=== PATIENT | male | born 1945 | race Caucasian/White ===

== ENCOUNTER → 2018-06-25 10:31 | Outpatient (BNVA) | payer MEDICARE, BC, SELFPAY | PROVIDERS: Visit Provider Student in an Organized Health Care Education/Training Program | DX: M17.12 Unilateral primary osteoarthritis, left knee (principal) | CPT/HCPCS: 20610; 99214; J1040 ==

== ENCOUNTER → 2018-07-23 08:43 | Outpatient (BNVA) | payer MEDICARE, BC, SELFPAY | PROVIDERS: Visit Provider Student in an Organized Health Care Education/Training Program | DX: M25.511 Pain in right shoulder (principal); S49.91XA Unspecified injury of right shoulder and upper arm, initial encounter; X50.0XXA Overexertion from strenuous movement or load, initial encounter | CPT/HCPCS: 99213; 99214 ==

== ENCOUNTER 2019-03-30 20:32 | Emergency (ER) | payer MEDICARE, BC, SELFPAY ==
[2019-03-30] VITALS (17 sets, daily range): BP systolic 114–126; BP diastolic 54–67; PULSE 94–112; RESP 13–23; TEMP 37.4–38.8; O2SAT 94–97
--- NOTE | 2019-03-30 20:44 | DI.RAD_ITS ---
SYMPTOM/DIAGNOSIS: FEVER CHEST X-RAY: Frontal and lateral views. Comparison is 07/01/15 Heart size and pulmonary vasculature are within normal limits. No definite focal consolidating infiltrates are seen. No effusions or pneumothoraces are identified. Stable degenerative changes are seen in the spine. IMPRESSION: No definite acute pulmonary process.
--- NOTE | 2019-03-30 20:45 | ED.GENADUL_ITS ---
Discharge Plan Disposition Patient Disposition: HOME Condition: Improving Discharge Details Chief Complaint: Fever Clinical Impression: Pneumonia involving right lung Primary Care Provider: Davida,Local ED Provider: Cachorro Calvert Home Meds and New Rx's Prescriptions: New cefpodoxime 200 mg tablet 200 mg PO BID Qty: 20 RF: 0 Continued atorvastatin 10 mg tablet 10 mg PO .QOD RF: 0 docusate sodium [Stool Softener] 100 mg Capsule 100 mg PO BID RF: 0 aspirin 81 mg Tablet,Chewable 81 mg PO DAILY RF: 0 losartan-hydrochlorothiazide 100-12.5 mg Tablet 1 tab PO DAILY RF: 0 Discharge Instructions Instructions: Pneumonia (ED) Additional Instructions: Home to rest today. May use Aleve or Tylenol as needed for aches, pains, fever. Please take antibiotics as prescribed, next dose tomorrow. Return for any acute concern. Follow-up with Dr. Barrera for recheck if not improving in 3 days time. Medical Decision Making 73-year-old male presents from home with the abrupt onset this afternoon of chills and a shaking rigor after working outside. He questioned a fever at home and arrived with a temperature 38.8. Pulse slightly elevated 112. Blood pressure normal 126/67. No clear source for fever, therefore broad fever work- up including chest x-ray, urinalysis, blood cultures obtained including lactic acid. Patient given fluid bolus and acetaminophen. Labs reveal slight neutrophil predominance. White count is 10. Discrete anion gap of 11. Chest x-ray reveals developing right base infiltrate. Patient given a gram of Rocephin. Following medication and fluids, patient defervesced, his pulse corrected to approximately 85-90. He subjectively felt improved. I will place him on a course of Cefpodoxime. He understands homecare as well as follow-up/return precautions. He is stable and improved at this time Lab Data Lab results reviewed: Yes I reviewed the patient's lab results. Laboratory Results - last 24 hr 03/30/19 03/30/19 03/30/19 20:45 20:45 20:45 WBC 10.28 RBC 4.06 L Hgb 12.9 L Hct 37.8 L MCV 93.1 MCH 31.8 MCHC 34.1 RDW 13.0 Plt Count 160 MPV 9.4 Immature Gran % 0.3 Neutrophils % 92.8 Lymphocytes % 4.7 Monocytes % 2.1 Eosinophils % 0.0 Basophils % 0.1 Absolute Neutrophils 9.54 H Absolute Lymphocytes 0.48 L Absolute Monocytes 0.22 Absolute Eosinophils 0.00 Absolute Basophils 0.01 Sodium 139 Potassium 3.4 L Chloride 105 Carbon Dioxide 22.5 Anion Gap 11.5 H BUN 27 H Creatinine 1.10 Estimated GFR/1.73 m2 >= 60.00 Glucose 131 H Lactate 1.5 H Calcium 8.0 L Magnesium 1.9 Total Bilirubin 0.7 AST 15 ALT 25 Alkaline Phosphatase 75 Total Protein 6.7 Albumin 3.1 L Urine Color Urine Clarity Urine pH Ur Specific [place] Urine Protein Urine Ketones Urine Blood Urine Nitrite Urine Bilirubin Urine Urobilinogen Ur Leukocyte Esterase Urine Glucose 03/30/19 21:05 WBC RBC Hgb Hct MCV MCH MCHC RDW Plt Count MPV Immature Gran % Neutrophils % Lymphocytes % Monocytes % Eosinophils % Basophils % Absolute Neutrophils Absolute Lymphocytes Absolute Monocytes Absolute Eosinophils Absolute Basophils Sodium Potassium Chloride Carbon Dioxide Anion Gap BUN Creatinine Estimated GFR/1.73 m2 Glucose Lactate Calcium Magnesium Total Bilirubin AST ALT Alkaline Phosphatase Total Protein Albumin Urine Color Yellow Urine Clarity Clear Urine pH 5.5 Ur Specific [place] 1.025 Urine Protein 30 H Urine Ketones Negative Urine Blood Negative Urine Nitrite Negative Urine Bilirubin Negative Urine Urobilinogen 0.2 Ur Leukocyte Esterase Negative Urine Glucose Negative ECG Data Attestation: I personally reviewed and interpreted this ECG (s) as follows: Interpretation: Normal sinus tachycardia with a rate of 110, the QRS is narrow, there is no ST segment elevation present HPI General Mode of arrival: EMS . Date/Time Provider Initiated Documentation: 03/30/19 20:49 . Limitations to Documentation: no limitations . Information obtained by: family and EMS . History of Present Illness 73 year old M presents to the emergency department with the chief complaint of Chills and fever, described as moderate, Quality is described as constant, Patient reports no radiation. Patient started experiencing this hour(s) and it has been constant. No relieving factors improve symptom(s), No exacerbating factors reported . Patient notes other (Loose stool). Patient did receive the following treatments prior to arrival, none Related Data Home Medications Medication Instructions Recorded Confirmed atorvastatin 10 mg tablet 10 mg PO .QOD tab 06/25/18 03/30/19 aspirin 81 mg PO DAILY 03/30/19 03/30/19 cefpodoxime 200 mg PO BID #20 tab 03/30/19 docusate sodium [Stool Softener] 100 mg PO BID 03/30/19 03/30/19 losartan-hydrochlorothiazide 1 tab PO DAILY 03/30/19 03/30/19 Previous Rx's Medication Instructions Recorded cefpodoxime 200 mg PO BID #20 tab 03/30/19 Allergies Allergy/AdvReac Type Severity Reaction Status Date / Time sulfamethoxazole Allergy Severe Skin Rash Unverified 03/30/19 20:39 [From Bactrim] trimethoprim [From Bactrim] Allergy Severe Skin Rash Unverified 03/30/19 20:39 Sulfa (Sulfonamide Allergy Intermediate Skin Rash Unverified 03/30/19 20:39 Antibiotics) General Stated Complaint: Fever BLANCA: 3 Review of Systems Review of Systems 8 systems reviewed and otherwise negative [facility] Social History Smoking/Tobacco Use Status: Never Drug use: Never Do you feel safe at home: Yes Do you feel safe in your relationship?: Yes Exam Narrative Exam Narrative: GEN: awake, alert, oriented 3. Pleasant, well groomed, interactive. HEAD: Normocephalic, atraumatic ENT: Mucous membranes moist, oropharynx unremarkable, External ear exam unremarkable EYES: PERRL, EOMI NECK: Full ROM, no DARRIUS, no menigismus CHEST/RESP: Nontender, clear to auscultation bilateral, no wheeze/rhonchi/rales CARDIOVASCULAR: Tachycardic with subtle 2 out of 6 systolic ejection murmur. 2+ Rad pulse bilateral ABDOMEN: Soft, nontender, no mass. +Bowel sounds EXT: Full ROM, no edema, no rash Neuro: Grossly normal neurologic exam, conversant, interactive. Psych: Speech fluent, thoughts congruent, affect normal Course Vital Signs Temperature 38.8 C H 03/30/19 20:32 Pulse 112 H 03/30/19 20:32 Respiratory Rate 18 03/30/19 20:32 Blood Pressure 126/67 03/30/19 20:32 Pulse Oximetry 96 03/30/19 20:32 Temperature 38.8 C H 03/30/19 20:32 Temperature Source Oral 03/30/19 20:32 Pulse 112 H 03/30/19 20:32 Respiratory Rate 18 03/30/19 20:32 Respiratory Effort Non-Labored 03/30/19 20:38 Blood Pressure 126/67 03/30/19 20:32 Blood Pressure Position Supine 03/30/19 20:32 Pulse Oximetry 96 03/30/19 20:32 Oxygen Delivery Method Room Air 03/30/19 20:32 Oxygen Flow Rate 0 03/30/19 20:32 Pain Level 0 03/30/19 20:32
[2019-03-30] MEDS: Acetaminophen 500 MG TAB 1000 MG PO (20:55)
[2019-03-30] MEDS: Normal Saline 1,000 ML 1000 ML IV (20:55)
[2019-03-30 21:05] LABS: Lactate-non-spesis 1.5 mmol/l (0.6-1.4)
[2019-03-30 21:06] LABS: Abs Immature Grans 0.03 k/cumm (0.0-0.09); Absolute Basophil Count 0.01 k/cumm (0.0-0.2); Absolute Lymphocyte Count 0.48 k/cumm (1.2-3.4); Absolute Monocyte Count 0.22 k/cumm (0.11-0.7); Absolute Neutrophil Count 9.54 k/cumm (1.2-6.7); Basophils % 0.1; HCT 37.8 % (40.0-50.0); HGB 12.9 g/dL (13.5-17.5); Immature Grans % 0.3; Lymphocytes % 4.7; Mean Corp. HGB Concentration 34.1 g/dL (32.0-36.0); Mean Corpuscular Hemoglobin 31.8 pg (27.0-33.0); Mean Corpuscular Volume 93.1 fL (80-95); Mean Platelet Volume 9.4 fL (8.0-11.0); Monocytes % 2.1; Neutrophils % 92.8; Platelet Count 160 x1000/uL (130-400); RBC 4.06 m/cumm (4.50-6.00); White Blood Cell Count 10.28 k/cumm (4.4-10.8)
[2019-03-30 21:21] LABS: Bilirubin Negative (Negative); Blood Negative (Negative); Clarity Clear (Clear); Glucose Negative (Negative); Ketones Negative (Negative); Leukocyte Esterase Negative (Negative); Nitrite Negative (Negative); Specific Gravity 1.025 (1.005-1.025); Urobilinogen 0.2 EU/dL (Up TO 0.2); pH 5.5 (5-8)
[2019-03-30 21:23] LABS: ALT 25 U/L (12-78); AST 15 U/L (15-37); Albumin 3.1 g/dL (3.4-5.0); Alkaline Phosphatase 75 U/L (46-116); Anion Gap 11.5 mmol/L (3-11); BUN 27 mg/dL (7-18); Bilirubin, Total 0.7 mg/dL (0.2-1.0); CO2 22.5 mmol/L (21.0-32.0); Chloride 105 mmol/L (98-107); Glucose 131 mg/dL (70-100); Potassium 3.4 mmol/L (3.5-5.1); Sodium 139 mmol/L (136-145); Total Protein 6.7 g/dL (6.4-8.2)
[2019-03-30 21:29] LABS: Magnesium 1.9 mg/dL (1.8-2.4)
--- NOTE | 2019-03-30 21:35 | DI.VRAD_ITS ---
EXAM: XR Chest, 2 Views EXAM DATE/TIME: 03/30/2019 8:45 PM CLINICAL HISTORY: 73 years old, male; Fever TECHNIQUE: Imaging protocol: XR of the chest, 2 views. COMPARISON: CR CHEST 2 VIEWS PA,LAT 01/07/2015 13:21 FINDINGS: Lungs: Increased density right lower lobe compared with prior study June 2015. Pleural space: Unremarkable. No pleural effusion. No pneumothorax. Heart/Mediastinum: Unremarkable. No cardiomegaly. Bones/joints: Unremarkable. IMPRESSION: Suspect developing right lower lobe infiltrate. Dictated and Authenticated by: Minna Carr MD. Ordering:CAMILLA Ivory MD
[2019-03-30 21:38] LABS: Bacteria Rare HPF (Negative); C & S Indicated? No; Casts Negative LPF (Negative); Crystals Negative HPF (Negative); Epithelial Cells Negative HPF (Negative); Mucus Moderate (Negative); RBC 0-2 (0-2); WBC Negative HPF (0-5)
[2019-03-30] MEDS: cefTRIAXone 1 GM/50 ML BAG IVPB (22:09)
== END 2019-03-30 22:48 | disposition home or self-care (01) ==
PROVIDERS: Emergency Provider Emergency Medicine
DX: R68.89 Other general symptoms and signs (principal); J18.9 Pneumonia, unspecified organism
CPT/HCPCS: 36415; 80053; 87040; 93005; 96361; 96365; 99285; 71046; 81003; 81015; 83605; 83735; 85025; 93010; 99284; J0696